=== PATIENT | male | born 1995 | race Caucasian/White ===

== ENCOUNTER 2018-02-14 20:14 | Emergency (ER) | payer OTHER ==
[2018-02-14] MEDS ORDERED: Octyl 2-Cyanoacrylate 1 APPLIC TUBE TOP ONE (20:50)
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
== END 2018-02-14 21:28 ==
LOC: MW.ED 20:14
DX: S01.21XA Laceration without foreign body of nose, initial encounter (principal); W19.XXXA Unspecified fall, initial encounter
CPT/HCPCS: 12011; 82962; 99282; A9270